=== PATIENT | female | born 1945 | race Asian ===

== ENCOUNTER 2020-12-04 17:27 | Emergency (ER) | payer OTHER, MEDICAID, SELFPAY ==
--- NOTE | 2020-12-04 17:32 | ED.EYEPROB ---
HPI - Eye Problem General Chief complaint: Eye Problems Stated complaint: eye irritation Time Seen by Provider: 12/04/20 17:32 Source: patient, family and RN notes reviewed History of Present Illness HPI Narrative: Patient is a 74-year-old female who presents the urgent care with her daughter with complaints of left eye irritation. States that she woke up with a lot of redness of the left eye this morning. States that 3 days ago she did have a left-sided headache but relieved with some [place] medicine . Currently denies of any headache. Denies of any history of high blood pressure. Denies of any known trauma or injury to the eye. Denies of any harsh coughing recently. Patient states that she does not have any pain, itch, or changes in vision to the eye. Initially patient stated that she had some blurry vision in both eyes 3 days ago and then changed her story to no changes in vision. Patient also reported of some weakness to the left eye but then reported it has been like that for some time . Daughter is translating for the patient. Unable to do a visual acuity due to language barrier. Patient has no neuro deficits. Denies of any use of [id number] medication. No other acute complaints. No acute distress noted. Patient and daughter aware of the plan of care. Some parts of this dictation were generated by voice recognition software and may contain typographical and/or grammatical inaccuracies. Related Data Home Medications Medication Instructions Recorded Confirmed No Home Medications 12/04/20 12/04/20 Allergies Allergy/AdvReac Type Severity Reaction Status Date / Time No Known Allergies Allergy Verified 12/04/20 17:35 Review of Systems Review of Systems: CONSTITUTIONAL: Denies fever, chills, or sweats. EYES: Reports of redness to the left eye ENT: Denies rhinorrhea, congestion, sore throat, or otalgia. CARDIOVASCULAR: Denies chest pain, palpitations, or edema. RESPIRATORY: Denies cough or dyspnea. GASTROINTESTINAL: Denies abdominal pain, nausea, vomiting, or diarrhea. GENITOURINARY: Denies dysuria or hematuria. SKIN: Denies rash or itching. MUSCULOSKELETAL: Denies back pain, joint pain, or myalgia. NEUROLOGIC: Denies headache, numbness, or weakness. All other systems reviewed are negative, except as documented in HPI. PMFSH Comments At the time of my signature, I reviewed and agree with the nursing past medical, surgical, social, and family history. There is no relevant family history pertinent to the patient complaint. Exam Narrative: GENERAL: This is a well-nourished, well-developed patient, in no apparent distress. HEAD: normocephalic, atraumatic. EYES: PERRL. Sclera clear/white. Vision is grossly intact. Subconjunctival hemorrhage noted to the medial aspect of the left eye. EARS: External ears normal NOSE: External nose normal with no obvious nasal discharge, nares without redness, no rhinorrhea. THROAT: Mucous membranes moist NECK: Neck supple CARDIOVASCULAR: Regular rate and rhythm RESPIRATORY: Clear to auscultation. Breath sounds equal bilaterally. No wheezes, rales, or rhonchi. SKIN: warm, intact with no suspicious lesions or rash, good texture and turgor. NEURO: awake, alert, and oriented to person, place and time. There were no obvious focal neurologic abnormalities. EXTREMITIES: No clubbing, cyanosis, or edema. Course Vital Signs Vital signs: Vital Signs Temperature 98.8 F 12/04/20 17:39 Pulse Rate 87 12/04/20 17:39 Respiratory Rate 12 12/04/20 17:39 Blood Pressure 136/89 12/04/20 17:39 Pulse Oximetry 97 12/04/20 17:39 Temperature 98.8 F 12/04/20 17:39 Pulse Rate 87 12/04/20 17:39 Respiratory Rate 12 12/04/20 17:39 Blood Pressure 136/89 12/04/20 17:39 Pulse Oximetry 97 12/04/20 17:39 Reviewed Transfer Transfered to: [place] Transportation: Other (Private car) Transfer rationale: Left subconjunctival hemorrhage, daughter insist on ER brown
[2020-12-04 17:39] VITALS: BP 136/89; PULSE 87; RESP 12; TEMP 37.1; O2SAT 97
== END 2020-12-04 18:02 | disposition short-term general hospital (02) ==
PROVIDERS: Emergency Provider Nurse Practitioner Family
DX: H11.32 Conjunctival hemorrhage, left eye (principal); E78.00 Pure hypercholesterolemia, unspecified
CPT/HCPCS: 99212; G0463

== ENCOUNTER 2020-12-04 18:19 | Emergency (ER) | payer OTHER, SELFPAY ==
[2020-12-04 19:23] VITALS: BP 138/70; PULSE 81; RESP 16; TEMP 36.9; O2SAT 95
--- NOTE | 2020-12-04 21:55 | ED.EYEPROB ---
HPI - Eye Problem General Chief complaint: Eye Problems Stated complaint: L eye hemorrhage Time Seen by Provider: 12/04/20 20:35 Source: patient, family and water hauler Mode of arrival: ambulatory Limitations: no limitations History of Present Illness HPI Narrative: 74-year-old female Here with her daughter who fluently interprets They note that about 3 days ago she had a fairly nondescript left-sided headache that did not have any other associated symptoms with it and was nicely resolved by some traditional remedies that she took This morning she woke with a subconjunctival hemorrhage in the medial part of her left eye She does not recall getting poked or dabbed with anything no straining no coughing no sneezing anything like that She does not have any blurry vision or any other visual symptoms Nor does she have any neurologic symptoms, weakness, dizziness, gait disturbance, paresthesias etc. She was seen in urgent care for this earlier but had some persistent anxiety about whether this might have been stroke related and came over to the ED for essentially a second opinion Related Data Home Medications Medication Instructions Recorded Confirmed No Home Medications 12/04/20 12/04/20 Allergies Allergy/AdvReac Type Severity Reaction Status Date / Time No Known Allergies Allergy Verified 12/04/20 17:35 Review of Systems Review of Systems: All systems reviewed & are unremarkable except as noted in HPI and below Constitutional: Constitutional: Reports no additional constitutional complaints, Denies chills, Denies fever(s), Denies headache(s) and Denies weakness Eyes: Eyes: Reports no additional eye complaints, Denies change in vision and Denies photophobia ENT: Denies headache(s) and Denies sore throat Cardiovascular: Cardiovascular: Denies chest pain and Denies dyspnea Respiratory: Respiratory: Denies cough and Denies dyspnea Gastrointestinal: Gastrointestinal: Denies nausea and Denies vomiting Genitourinary: Genitourinary: Denies urinary frequency Musculoskeletal: Musculoskeletal: Denies deformity and Denies numbness Integumentary/Breasts: Skin/Breast: Denies wounds Neurologic: Denies vertigo, Denies syncope, Reports headache(s), Denies focal weakness and Denies numbness Hematologic/Lymphatic: Hematologic/Lymphatic: Reports no additional hematologic/lymphatic complaints Exam Const: General: cooperative, no acute distress and alert Orientation/consciousness: patient oriented x3 (alert) HENMT: Head: normal to inspection, normocephalic and atraumatic Ears: external ears normal General nose exam: no epistaxis Eyes: Conjunctivae: conjunctivae normal EOM: EOMs intact bilaterally Neck: Neck: normal visual inspection, supple and no JVD Resp: Effort & Inspection: normal respiratory effort and not labored Auscultation: no rales, no rhonchi, no wheezes and other (BS =) Cardio: Rate: regular rate Rhythm: regular rhythm Heart sounds: no murmurs GI: GI Palp: Yes Soft to palpation and No Tenderness to palpation present (GI) Skin: General skin exam: normal color and no rashes or lesions noted Neuro: General: patient oriented x3 (alert) and moves all extremities Speech: normal speech Extrem: General: normal to inspection and no pedal edema Psych: Affect: normal affect Course Vital Signs Vital signs: Vital Signs Temperature 36.9 C 12/04/20 19:23 Pulse Rate 81 12/04/20 19:23 Respiratory Rate 16 12/04/20 19:23 Blood Pressure 138/70 12/04/20 19:23 Pulse Oximetry 95 12/04/20 19:23 Temperature 36.9 C 12/04/20 19:23 Pulse Rate 77 12/04/20 22:28 Respiratory Rate 16 12/04/20 22:28 Blood Pressure 128/78 12/04/20 22:28 Pulse Oximetry 97 12/04/20 22:28 Discharge Plan Discharge Clinical Impression: Subconjunctival hemorrhage Patient Disposition: Home, Self-Care Condition: Stable Instructions: Subconjunctival Hemorrhage (ED) Prescriptions:
[2020-12-04 22:28] VITALS: BP 128/78; PULSE 77; RESP 16; O2SAT 97
== END 2020-12-04 22:30 | disposition home or self-care (01) ==
PROVIDERS: Emergency Provider Emergency Medicine
DX: H11.32 Conjunctival hemorrhage, left eye (principal)
CPT/HCPCS: 99283

== ENCOUNTER 2021-11-02 11:31 | Outpatient (CLI) | payer MEDICAID, SELFPAY ==
--- NOTE | 2021-11-02 | ECHO_ITS ---
Patient Info Name: Sergio Cooper Age: 75 years : 1945 Gender: Female Ht: 63 in Wt: 120 lbs BSA: 1.56 m2 HR: 80 bpm BP: 119 / 78 mmHg Heart Rhythm: Sinus Rhythm Technical Quality: Fair Exam Date: 11/02/2021 11:58 AM Exam Location: [facility] Patient Status: Outpatient Admit Date: 11/02/2021 Staff Ordering Physician: RobinCarlos Eduardo M.D. Sow Farm Manager: Ghada Smith RDCS Attending Provider: Adarsh, Carlos Eduardo Tam M.D. Referring Physician: Robin DEMPSEY; Exam Type: CA echo doppler color flow Study Info Indications - LY Complete two-dimensional, color flow and Doppler transthoracic echocardiogram is performed. Summary 1. Complete two-dimensional, color flow and Doppler transthoracic echocardiogram is performed. 2. Left ventricular chamber dimension is normal. 3. There is mildly increased left ventricular wall thickness. 4. Left ventricular systolic function is normal, estimated at 65-70%. 5. The left ventricular diastolic function is grade I diastolic dysfunction. 6. E/e' 8 is minimally elevated. 7. Left atrial chamber dimension is mildly enlarged. 8. There is trace mitral valve regurgitation. 9. No pulmonary hypertension, estimated pulmonary arterial systolic pressure is 22 mmHg. Left Ventricle E/e' 8 is minimally elevated. Left ventricular chamber dimension is normal. Left ventricular systolic function is normal, estimated at 65-70%. There is mildly increased left ventricular wall thickness. The left ventricular diastolic function is grade I diastolic dysfunction. Right Ventricle Right ventricular systolic function is normal and with normal TAPSE 1.7 cm. Right ventricular chamber dimension is normal. Left Atria Left atrial chamber dimension is mildly enlarged. Right Atria Right atrial chamber dimension is normal. Aortic Valve The aortic valve is trileaflet. There is no aortic valve stenosis. There is no aortic valve regurgitation. Pulmonic Valve There is no pulmonic regurgitation. Mitral Valve There is no mitral valve stenosis. There is trace mitral valve regurgitation. Tricuspid Valve There is no tricuspid valve regurgitation. No pulmonary hypertension, estimated pulmonary arterial systolic pressure is 22 mmHg. Pericardium/Pleural There is no pericardial effusion. Inferior Vena Cava Normal inferior vena cava with >50% collapse upon inspiration consistent with normal right atrial pressure, 5 mmHg. Aorta The aortic root size at the sinus of Valsalva is normal. Left Ventricular Outflow Tract Name Value Normal LVOT 2D LVOT Diameter 2.0 cm LVOT Doppler LVOT Peak Gradient 5 mmHg LVOT Mean Gradient 2 mmHg LVOT VTI 22 cm LVOT VTI/AV VTI Ratio 1.1 LVOT Stroke Volume 66 ml LVOT CO 4.2 l/min LVOT CI 2.7 l/min/m2 Pulmonic Valve Name
== END 2021-11-02 11:32 | disposition home or self-care (01) ==
PROVIDERS: Visit Provider Family Medicine
DX: R06.00 Dyspnea, unspecified (principal)
CPT/HCPCS: 93306

== ENCOUNTER 2022-04-20 10:05 | Emergency (ER) | payer MEDICAID, SELFPAY ==
[2022-04-20 10:20] VITALS: BP 117/72; PULSE 80; RESP 16; TEMP 36.8; O2SAT 96
--- NOTE | 2022-04-20 10:53 | ED.GENADULT ---
HPI - General Adult General Chief complaint: Shortness of Breath/Dyspnea Stated complaint: Shortness of breath Time Seen by Provider: 04/20/22 10:53 Source: patient Mode of arrival: ambulatory Limitations: no limitations History of Present Illness HPI narrative: 76-year-old English speaking female presented with an paraprofessional interpreter for complaints of shortness of breath, fatigue and diarrhea this week. She also endorses last night she had heart racing. Shortness of breath is worse with exertion. Also reports urine is brown in color despite drinking about 2 L of fluid per day. She states this feels like her symptoms when she had COVID. Concurrently denies chest pain, palpitations, wheezing, nausea or vomiting, fever chills. Denies sick contacts. Denies significant medical/surgical history. She has not taken anything for symptoms. Related Data Home Medications Medication Instructions Recorded Confirmed No Home Medications 12/04/20 12/04/20 Allergies Allergy/AdvReac Type Severity Reaction Status Date / Time No Known Allergies Allergy Verified 12/04/20 17:35 Review of Systems Review of Systems: Per HPI All systems reviewed & are unremarkable except as noted in HPI and below PMFSH Comments At time of signature, I have reviewed and agree with nursing past medical, surgical, social and family history unless otherwise noted. Please see nursing chart for further information. There is no relevant family history pertinent to the presenting complaint Exam Narrative: GENERAL: Well-appearing, in no acute distress. EYES: EOMI. No redness or drainage. Conjunctivae normal. ENT: Mucous membranes pink and moist. No rhinorrhea. TMs normal bilaterally. NECK: Normal AROM. Supple. CHEST: No respiratory distress. LCTAB HEART: Regular rate and rhythm. No murmur appreciated. ABDOMEN: Soft, nontender, nondistended, normal active bowel sounds. EXTREMITIES: Normal range of motion. No edema. SKIN: Warm, dry, no rash. Capillary refill normal. Normal skin turgor. NEURO: Alert and oriented x3. Gait steady. PSYCH: Normal affect. Course Course Emergency Course: Patient is aware of diagnosis, understands and agrees to treatment plan. Anticipatory guidance given. Portions of this record may have been created with voice recognition software Level of Care: Express Care Visit Vital Signs Vital signs: Vital Signs Oxygen Delivery Room Air 04/20/22 10:15 Temperature 98.0 F 04/20/22 11:59 Pulse Rate 78 04/20/22 11:59 Respiratory Rate 18 04/20/22 11:59 Blood Pressure 113/60 04/20/22 11:59 Pulse Oximetry 97 04/20/22 11:59 Oxygen Delivery Room Air 04/20/22 11:59 Transfer Transfered to: [place] Transportation: Other (private vehicle) Transfer rationale: Pt is agreeable to transfer. Requests transfer to [facility] via private vehicle. Risks of transportation reviewed with pt including injury, worsening of condition and . v/u. Dtr will be driving pt; Report called to hospital, spoke with Bre Shannon, accepting physician. Pt is in stable condition at time of transfer. Advised to remain NPO and go directly to the hospital. Medical Decision Making MDM Narrative Medical decision making narrative: Patient reports sob with exertion and fatigue this week. Covid test negative. Recommend ER transfer. Differential Diagnosis Differential Diagnosis: viral infection, bronchitis, chf, [place], PE, pneumonia, arrhythmia Vital Signs Vital Signs: Vital Signs Oxygen Delivery Room Air 04/20/22 10:15 Temperature 98.0 F 04/20/22 11:59 Pulse Rate 78 04/20/22 11:59 Respiratory Rate 18 04/20/22 11:59 Blood Pressure 113/60 04/20/22 11:59 Pulse Oximetry 97 04/20/22 11:59 Oxygen Delivery Room Air 04/20/22 11:59 Lab Data Labs: Lab Results 04/20/22 Range/Units 11:03 POC SARS CoV-2 Ag Negative (Negative) ECG Data EKG #1: Attestation
--- NOTE | 2022-04-20 11:39 | ECG_ITS ---
Measurements Intervals [place] Rate: 68 P: 37 UT: 143 QRS: 12 QRSD: 99 T: 10 QT: 416 QTc: 445 Interpretive Statements SINUS RHYTHM MODERATE T-WAVE ABNORMALITY, CONSIDER ANTEROLATERAL ISCHEMIA [-0.1+ mV T WAVE IN V3-V6] NO PREVIOUS ECG AVAILABLE FOR COMPARISON Electronically Signed On 04-20-2022 13:25:37 ENTERTAINMENT LAWYER by Maureen Aden M.D.
--- NOTE | 2022-04-20 11:58 | PC.NURSE ---
PT AND DAUGHTER ARE AWARE OF PLAN OF CARE. REPORT CALLED TO [facility]. DAUGHTER TO TRANSPORT.
[2022-04-20 11:59] VITALS: BP 113/60; PULSE 78; RESP 18; TEMP 36.7; O2SAT 97
== END 2022-04-20 12:03 | disposition short-term general hospital (02) ==
PROVIDERS: Emergency Provider Nurse Practitioner Family; PCP Family Medicine
DX: R06.00 Dyspnea, unspecified (principal); Z20.822 Contact with and (suspected) exposure to COVID-19
CPT/HCPCS: 87426; 93005; 99213; C9803; G0463

== ENCOUNTER 2022-04-20 14:14 | Emergency (ER) | payer MEDICAID, SELFPAY ==
--- NOTE | ~2022-04-20 | XR_ITS ---
EXAMINATION: XR chest 2V DATE: 04/20/2022 16:10 INDICATION: Weakness and shortness of breath TECHNIQUE: Frontal and lateral views of the chest are obtained COMPARISON: 02/16/2018 FINDINGS: The lungs are free of acute opacities. No pleural effusion or pneumothorax. The cardiomedia stinal silhouette is normal. 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 IMPRESSION: 1. No acute cardiopulmonary abnormality. Reviewed, dictated and finalized at location [facility]. [facility]
[2022-04-20 15:32] VITALS: BP 134/77; PULSE 83; RESP 20; TEMP 36.8; O2SAT 95
--- NOTE | 2022-04-20 15:40 | ECG_ITS ---
Measurements Intervals [place] Rate: 77 P: 45 SC: 145 QRS: 30 QRSD: 92 T: 6 QT: 386 QTc: 439 Interpretive Statements SINUS RHYTHM MODERATE T-WAVE ABNORMALITY, CONSIDER ANTERIOR ISCHEMIA [-0.1+ mV T WAVE IN V3/V4] COMPARED TO ECG 04/20/2022 11:54:04 NO SIGNIFICANT CHANGES Electronically Signed On 04-20-2022 16:38:21 WOOD GOUGER by Maureen Aden M.D.
[2022-04-20 16:10] LABS: Basophils Percent Auto 0.3 % (0.2-1.2); Eosinophils Absolute Auto 0.1 K/mm3 (0-0.3); Eosinophils Percent Auto 1.9 % (0-4.4); Hematocrit 39.8 % (37.0-47.0); Hemoglobin 13.2 g/dL (12.0-15.0); Immature Granulocyte Absolute 0.02 K/mm3 (0.00-0.031); Immature Granulocyte Percent A 0.3 % (0-0.5); Lymphocytes Absolute Auto 2.49 K/mm3 (0.9-3.2); Lymphocytes Percent Auto 40.2 % (18.3-44.2); Mean Corpuscular HGB Conc 33.2 g/dl (32-36); Mean Corpuscular Hemoglobin 31.4 pg (26-34); Mean Corpuscular Volume 94.5 fl (80-100); Mean Platelet Volume 10.3 fl (7.4-10.4); Monocytes Absolute Auto 0.6 K/mm3 (0.1-0.6); Monocytes Percent Auto 8.9 % (2.6-8.5); Neutrophils Percent Auto 48.4 % (45.5-73.1); Platelet Count Result 193 k/mm3 (150-375); Red Blood Count 4.21 M/mm3 (4.2-5.4); Red Cell Distribution Width 13.4 % (11.5-14.5); White Blood Count 6.2 K/mm3 (4.5-10.0)
[2022-04-20 16:18] LABS: Add Urine Microscopic? NO; Appearance Urine Clear (Clear); Bilirubin Urine Negative (Negative); Blood Urine Negative (Negative); Color Urine Light Yellow (Yellow); Glucose Urine UA Negative (Negative); Ketones Urine Negative (Negative); Leukocyte Esterase Ur Negative LEU/UL (Negative); Nitrate Urine Negative (Negative); Protein Urine Negative (Negative); Urobilinogen Urine 0.2 mg/dL (<2.0)
[2022-04-20 16:19] LABS: Alanine Aminotransferase 35 U/L (6-35); Albumin Level 4.5 g/dL (3.5-5.1); Alkaline Phosphatase 75 U/L (38-126); Anion Gap 8 mmol/L (8-16); Aspartate Amino Transferase 38 U/L (14-36); Bilirubin,Total 0.3 mg/dL (0.2-1.3); Blood Urea Nitrogen 14 mg/dL (7-17); Calcium 9.2 mg/dL (8.4-10.2); Carbon Dioxide 27 mmol/L (22-30); Chloride 105 mmol/L (98-107); Estimated CRCL calculation 52 ml/min; Estimated Glomerular Filt Rate > 60; Glucose 154 mg/dL (65-110); Potassium 4.1 mmol/L (3.4-5.0); Sodium 140 mmol/L (137-145)
[2022-04-20 19:18] VITALS: BP 123/70; PULSE 72; RESP 18; TEMP 36.6; O2SAT 97
[2022-04-20 21:01] VITALS: BP 125/79; PULSE 73; RESP 14; O2SAT 96
[2022-04-20 21:20] LABS: Influenza A QL RT-PCR Negative (Negative); Influenza B QL RT-PCR Negative (Negative); SARS-CoV-2 RNA PCR Negative
--- NOTE | 2022-04-20 21:59 | ED.WEAKNESS ---
HPI - Weakness General Chief complaint: Weakness Stated complaint: WEAKNESS, DARK URINE X3WKS Time Seen by Provider: 04/20/22 20:46 History of Present Illness HPI Narrative: 76-year-old female who states that since she got COVID earlier this year, she just has not been breathing comfortably ever since. She has been having some congestion and increased dyspnea on exertion. Related Data Home Medications Medication Instructions Recorded Confirmed No Home Medications 12/04/20 12/04/20 Allergies Allergy/AdvReac Type Severity Reaction Status Date / Time No Known Allergies Allergy Verified 04/20/22 20:39 Review of Systems Review of Systems: CONST: No fever. HEENT: Congestion C/V: No chest pain RESP: Dyspnea on exertion GI: No abdominal pain, nausea or : No dysuria. M/S: No joint pain. SKIN: No rash. NEURO: [No headache or focal numbness or weakness] PSYCH: Some mild anxiety about her symptoms PMFSH Past Medical History Medical History (Updated 04/21/22 @ 01:39 by Germania Layton MD) COVID Social History Social History (Updated 04/21/22 @ 01:39 by Germania Layton MD) Smoking status: Never smoker Exam Narrative: EXAMINATION OF ORGAN SYSTEMS/BODY AREAS: Constitutional: Vital signs per nursing GENERAL:[No acute distress, non-toxic appearing.] HEAD: Normal with no signs of head trauma. EYES: EOMI, conjunctiva normal ENT: Hearing grossly intact LUNGS: Nonlabored breathing. HEART: [Regular rate and rhythm] ABD: [Soft], [nontender to palpation] EXT: Normal range of motion SKIN: [No rashes or lesions.] NEURO: [Alert and oriented x 3. No gross focal sensory or strength deficits.] PSYCH: Normal affect Course Vital Signs Vital signs: Vital Signs Temperature 98.2 F 04/20/22 15:32 Pulse Rate 83 04/20/22 15:32 Respiratory Rate 20 04/20/22 15:32 Blood Pressure 134/77 04/20/22 15:32 Pulse Oximetry 95 04/20/22 15:32 Oxygen Delivery Room Air 04/20/22 15:32 Temperature 97.8 F 04/20/22 19:18 Pulse Rate 78 04/20/22 22:36 Respiratory Rate 13 04/20/22 22:36 Blood Pressure 127/79 04/20/22 22:36 Pulse Oximetry 95 12/28/22 22:36 Oxygen Delivery Room Air 04/20/22 15:32 MDM - Weakness MDM Narrative Medical decision making narrative: 76-year-old female presenting with dyspnea on exertion that has been ongoing for the past year since she got COVID. Vital signs normal here, cardiopulmonary work-up initiated here. Labs are unremarkable, chest x-ray normal, COVID, flu and RSV swabs are negative. Discussed with patient my concern for possible diagnosis of long COVID, and will give her follow-up to pulmonology. Return precautions are provided. Stable for discharge at this time. Lab Data 04/20/22 16:00 04/20/22 16:00 Labs: Lab Results 04/20/22 04/20/22 04/20/22 Range/Units 16:00 16:00 16:00 WBC 6.2 (4.5-10.0) K/mm3 RBC 4.21 (4.2-5.4) M/mm3 Hgb 13.2 (12.0-15.0) g/dL Hct 39.8 (37.0-47.0) % MCV 94.5 (80-100) fl MCH 31.4 (26-34) pg MCHC 33.2 (32-36) g/dl RDW 13.4 (11.5-14.5) % Plt Count 193 (150-375) k/mm3 MPV 10.3 (7.4-10.4) fl Immature Gran % (Auto) 0.3 (0-0.5) % Neut % (Auto) 48.4 (45.5-73.1) % Lymph % (Auto) 40.2 (18.3-44.2) % [place] % (Auto) 8.9 H (2.6-8.5) % Eos % (Auto) 1.9 (0-4.4) % Baso % (Auto) 0.3 (0.2-1.2) % Lymph # (Auto) 2.49 (0.9-3.2) K/mm3 [place] # (Auto) 0.6 (0.1-0.6) K/mm3 Eos # (Auto) 0.1 (0-0.3) K/mm3 Baso # (Auto) 0.0 (0.0-0.1) K/mm3 Abs Immat Gran (auto) 0.02 (0.00-0.031) K/mm3 Absolute Neuts (auto) 3.0 (1.3-6.7) K/mm3 Absolute Nucleated RBC 0.0 (0.0-0.012) K/mm3 Nucleated RBC % 0.0 (0.0-0.2) % Sodium 140 (137-145) mmol/L Potassium 4.1 (3.4-5.0) mmol/L Chloride 105 (98-107) mmol/L Carbon Dioxide 27 (22-30) mmol/L Anion Gap 8 (8-16) mmol/L BUN 14 (7-17) mg/dL Creat
[2022-04-20 22:01] VITALS: BP 117/72; PULSE 77; RESP 20; O2SAT 96
[2022-04-20 22:31] VITALS: BP 127/79; PULSE 76; RESP 18; O2SAT 95
[2022-04-20 22:36] VITALS: BP 127/79; PULSE 78; RESP 13; O2SAT 95
== END 2022-04-20 22:38 | disposition home or self-care (01) ==
PROVIDERS: Emergency Medicine; Emergency Provider Emergency Medicine; PCP Family Medicine
DX: R06.00 Dyspnea, unspecified (principal); Z20.822 Contact with and (suspected) exposure to COVID-19; Z86.16 Personal history of COVID-19; R94.31 Abnormal electrocardiogram [ECG] [EKG]
CPT/HCPCS: 36415; 71046; 80053; 81003; 85025; 87426; 87636; 93005; 99283; C9803